=== PATIENT | female | born 1975 | race Hispanic/Latino ===

== ENCOUNTER 2024-04-13 17:43 | Emergency (ER) | payer OTHER ==
[~2024-04-13] VITALS: Ht 162.6 cm; Wt 92.5 kg
[2024-04-13 19:32] VITALS: TEMP 98.7
[2024-04-13] MEDS: ACETAMINOPHEN 325 MG TAB PO ONE (20:03)
[2024-04-13 21:22] VITALS: BP 135/85; PULSE 82; RESP 18; O2SAT 97
== END 2024-04-13 21:22 | disposition home or self-care (01) ==
LOC: FSED 19:07
DX: R51.9 Headache, unspecified (principal); D75.839 Thrombocytosis, unspecified; H53.8 Other visual disturbances; R94.31 Abnormal electrocardiogram [ECG] [EKG]
CPT/HCPCS: 70450; 80053; 80307; 81003; 84484; 85025; 93005; 99284

== ENCOUNTER 2024-10-19 17:52 | Emergency (ER) | payer MEDICARE, OTHER ==
[~2024-10-19] VITALS: Ht 162.6 cm; Wt 91.7 kg
[2024-10-19] MEDS ORDERED: KETOROLAC TROME10 MG PO (19:36)
[2024-10-19] MEDS ORDERED: CIPRO500 MG PO (19:36)
[2024-10-19 20:25] VITALS: PULSE 68; RESP 18; TEMP 97.9
[2024-10-19 20:26] VITALS: BP 135/81; PULSE 68; RESP 18; TEMP 97.9; O2SAT 99
== END 2024-10-19 20:29 | disposition home or self-care (01) ==
LOC: FSED 17:56
DX: R51.9 Headache, unspecified (principal); D75.839 Thrombocytosis, unspecified; N39.0 Urinary tract infection, site not specified
CPT/HCPCS: 70450; 80053; 81003; 81025; 85025; 99284